=== PATIENT | female | born 1975 | race Caucasian/White ===

== ENCOUNTER 2022-03-28 09:47 | Outpatient (CLI) | payer OTHER ==
[~2022-03-28 09:47] MED LIST: Iopamidol-370 76% 500 ML 1 ML ONE
== END 2022-03-28 09:48 | disposition home or self-care (01) ==
LOC: BICCT 09:47
PROVIDERS: ATTEND Physician Assistant Medical
DX: K50.90 Crohn's disease, unspecified, without complications (principal); K80.20 Calculus of gallbladder without cholecystitis without obstruction; K59.00 Constipation, unspecified; N83.201 Unspecified ovarian cyst, right side
CPT/HCPCS: 74177; Q9967

== ENCOUNTER 2022-07-10 07:41 | Outpatient (CLI) | payer OTHER | END 2022-07-10 07:42 | disposition home or self-care (01) | LOC: NM 07:41 | PROVIDERS: ATTEND Internal Medicine Gastroenterology | DX: R11.0 Nausea (principal); Z87.19 Personal history of other diseases of the digestive system | CPT/HCPCS: 78227; A9537 ==

== ENCOUNTER 2022-11-12 11:04 | Outpatient (CLI) | payer OTHER ==
[~2022-11-12 11:04] MED LIST changes: +Iopamidol 370 76% 100 ML VIAL ONE; -Iopamidol-370 76% 500 ML 1 ML ONE
== END 2022-11-12 11:05 | disposition home or self-care (01) ==
LOC: CT 11:04
PROVIDERS: ATTEND Physician Assistant Medical
DX: K50.913 Crohn's disease, unspecified, with fistula (principal); K80.20 Calculus of gallbladder without cholecystitis without obstruction; N13.30 Unspecified hydronephrosis; Z98.890 Other specified postprocedural states
CPT/HCPCS: 74178; Q9967